=== PATIENT | female | born 2005 | race African-American/Black ===

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

== ENCOUNTER 2024-11-17 13:31 | Emergency (ER) | payer MEDICAID ==
[~2024-11-17] VITALS: Ht 167.6 cm; Wt 66.0 kg
[2024-11-17 13:33] VITALS: O2SAT 100
[2024-11-17 13:39] VITALS: BP 123/91; PULSE 121; RESP 16; TEMP 36.9
[2024-11-17 14:26] LABS: BASOPHILS % 0.9 % (0.0-2.0); EOSINOPHILS % 1.5 % (0.0-5.0); HEMATOCRIT. 32.8 % (36.0-48.0); HEMOGLOBIN. 11.0 g/dL (12.0-16.0); LYMPHOCYTES % 48.2 % (20.0-50.0); MEAN PLATELET VOLUME 7.1 fl (7.4-10.4); MONOCYTES % 3.6 % (2.0-8.0); NEUTROPHILS % 45.8 % (40.0-76.0); PLATELET 504 x1000/uL (130-400); RED BLOOD CELL COUNT 3.84 mill/uL (4.2-5.4); RED CELL DISTRIBUTION WIDTH 12.1 % (11.6-14.6)
[2024-11-17 14:27] LABS: CLARITY URINE CLEAR (CLEAR); COLOR URINE YELLOW (YELLOW); GLUCOSE URINE NEGATIVE (NEGATIVE); KETONES URINE 1+ (NEGATIVE); LEUKOCYTE ESTERASE URINE NEGATIVE (NEGATIVE); NITRITE URINE NEGATIVE (NEGATIVE); OCCULT BLOOD URINE NEGATIVE (NEGATIVE); PH URINE >=9.0 (4.5-8.0); PROTEIN URINE 1+ (NEGATIVE); SPECIFIC GRAVITY URINE 1.014 (1.005-1.030); UROBILINOGEN URINE 0.2 E.U./dL (0.2-1.0)
[2024-11-17 14:37] LABS: CREATININE 0.9 mg/dL (0.6-1.0); UREA NITROGEN BLOOD 6 mg/dL (9-23)
[2024-11-17 14:42] LABS: HCG SCREEN NEGATIVE
[2024-11-17 14:44] LABS: SQUAMOUS EPITHELIAL CELL URINE 2+ /lpf (RARE/1+); WBC URINE 0-2 /hpf (0-2)
[2024-11-17 14:45] LABS: BACTERIA URINE NONE SEEN; RBC URINE NONE SEEN /hpf (0-2)
[2024-11-17 15:00] VITALS: TEMP 98.5
[2024-11-17] MEDS: ONDANSETRON 4MG ODT PO ONE (15:00)
[2024-11-17] MEDS: ACETAMINOPHEN 325MG TABLET PO ONE (15:00)
[2024-11-17] MEDS ORDERED: ONDA-239 PO (16:28)
== END 2024-11-17 17:14 | disposition home or self-care (01) ==
LOC: ER 13:31
DX: K29.70 Gastritis, unspecified, without bleeding (principal); E11.9 Type 2 diabetes mellitus without complications; Z79.899 Other long term (current) drug therapy
CPT/HCPCS: 36415; 74176; 80048; 81003; 81025; 84703; 85025; 99284

== ENCOUNTER 2024-11-23 14:56 | Inpatient (IN) | payer MEDICAID ==
[~2024-11-23] VITALS: Ht 166.4 cm; Wt 61.2 kg
[~2024-11-23 14:56] MED LIST changes: +ONDA-239 PO
[2024-11-23 15:09] VITALS: O2SAT 99
[2024-11-23] MEDS: ONDANSETRON HCL 4MG/2ML INJ IV ONE (15:51)
[2024-11-23] MEDS: MORPHINE SULFATE 4 MG/ML INJ (FOR IV/IM USE) IV ONE (15:52)
[2024-11-23] MEDS: SODIUM CHLORIDE 0.9% 1,000 ML IV ONE ×2 (15:52→19:30)
[2024-11-23 16:01] LABS: BASOPHILS % 1.2 % (0.0-2.0); EOSINOPHILS % 1.5 % (0.0-5.0); HEMATOCRIT. 35.3 % (36.0-48.0); HEMOGLOBIN. 11.8 g/dL (12.0-16.0); LYMPHOCYTES % 47.5 % (20.0-50.0); MEAN PLATELET VOLUME 7.4 fl (7.4-10.4); MONOCYTES % 2.8 % (2.0-8.0); NEUTROPHILS % 47.0 % (40.0-76.0); PLATELET 465 x1000/uL (130-400); RED BLOOD CELL COUNT 4.09 mill/uL (4.2-5.4); RED CELL DISTRIBUTION WIDTH 12.3 % (11.6-14.6)
[2024-11-23 16:11] LABS: CREATININE 1.0 mg/dL (0.6-1.0)
[2024-11-23 16:12] LABS: UREA NITROGEN BLOOD 9 mg/dL (9-23)
[2024-11-23 16:13] LABS: ASPARTATE AMINOTRANSFERASE 9 IU/L (<34); BILIRUBIN DIRECT < 0.1 mg/dL (<=3.0)
[2024-11-23 16:14] LABS: BILIRUBIN TOTAL 0.3 mg/dL (0.1-1.0); PROTEIN TOTAL 7.4 g/dL (6.0-8.3)
[2024-11-23 16:56] LABS: BG DEOXYHEMOGLOBIN 10.0 % (0.0-5.0)
[2024-11-23] MEDS ORDERED: HYDROMORPHONE HCL/PF 2MG/ML INJ IV ONE (18:00)
[2024-11-23 18:01] LABS: CLARITY URINE CLEAR (CLEAR); COLOR URINE YELLOW (YELLOW); GLUCOSE URINE 3+ (NEGATIVE); KETONES URINE 1+ (NEGATIVE); LEUKOCYTE ESTERASE URINE NEGATIVE (NEGATIVE); NITRITE URINE NEGATIVE (NEGATIVE); OCCULT BLOOD URINE NEGATIVE (NEGATIVE); PH URINE 7.0 (4.5-8.0); PROTEIN URINE 2+ (NEGATIVE); SPECIFIC GRAVITY URINE 1.041 (1.005-1.030); UROBILINOGEN URINE 1.0 E.U./dL (0.2-1.0)
[2024-11-23 18:21] LABS: RBC URINE 0-2 /hpf (0-2); SQUAMOUS EPITHELIAL CELL URINE 2+ /lpf (RARE/1+); WBC URINE 0-2 /hpf (0-2)
[2024-11-23 18:22] LABS: BACTERIA URINE TRACE
[2024-11-23] MEDS: HYDROMORPHONE HCL/PF 1MG/ML INJ IV NR (19:30)
[2024-11-24 00:28] VITALS: BP 120/86; PULSE 114; RESP 18; TEMP 36.3068
[2024-11-24] MEDS ORDERED: DEXTROSE 50% WATER 50ML SYRINGE IV PRN ×2 (01:15→12:30)
[2024-11-24] MEDS ORDERED: HYDROCODONE/ACETAMINOPHEN 5/325MG TABLET PO PRN (01:15)
[2024-11-24] MEDS ORDERED: MORPHINE SULFATE 2 MG/ML INJ (NOT FOR IM USE) IV PRN (01:15)
[2024-11-24] MEDS: SODIUM CHLORIDE 0.9% 1,000 ML IV SCH (01:30)
[2024-11-24] MEDS: MORPHINE SULFATE 4 MG/ML INJ (FOR IV/IM USE) IV PRN (02:17)
[2024-11-24 04:00] VITALS: BP 120/86; PULSE 114; RESP 18; TEMP 36.3; O2SAT 98
[2024-11-24] MEDS: BLOOD SUGAR DIAGNOSTIC STRIP TEST SCH (06:49)
[2024-11-24] MEDS: INSULIN GLARGINE 100 UNITS/ML SUBCUT SCH (08:52)
[2024-11-24] MEDS: INSULIN LISPRO 100 UNITS/ML SUBCUT SCH ×2 (08:56→12:50)
[2024-11-24] MEDS ORDERED: ACETAMINOPHEN 325MG TABLET PO PRN (12:30)
[2024-11-24] MEDS ORDERED: NALOXONE HCL 0.4MG/ML VIAL IV PRN (13:00)
[2024-11-24 16:00] VITALS: BP 115/82; PULSE 121; RESP 18; TEMP 36.5; O2SAT 98
[2024-11-24] MEDS ORDERED: BLOOD SUGAR DIAGNOSTIC STRIP TEST SCH (17:20)
[2024-11-24 20:00] VITALS: BP 134/96; PULSE 102; RESP 20; TEMP 36.3; O2SAT 100
[2024-11-25] VITALS (7 sets, daily range): BP systolic 95–123; BP diastolic 65–89; PULSE 67–103; RESP 16–18; TEMP 36.3–36.9; O2SAT 96–100
[2024-11-25 09:20] LABS: BASOPHILS % 0.3 % (0.0-2.0); EOSINOPHILS % 2.8 % (0.0-5.0); HEMATOCRIT. 33.5 % (36.0-48.0); HEMOGLOBIN. 11.1 g/dL (12.0-16.0); LYMPHOCYTES % 60.7 % (20.0-50.0); MEAN PLATELET VOLUME 7.9 fl (7.4-10.4); MONOCYTES % 4.6 % (2.0-8.0); NEUTROPHILS % 31.6 % (40.0-76.0); PLATELET 395 x1000/uL (130-400); RED BLOOD CELL COUNT 3.95 mill/uL (4.2-5.4); RED CELL DISTRIBUTION WIDTH 12.6 % (11.6-14.6)
[2024-11-25 09:43] LABS: CREATININE 0.7 mg/dL (0.6-1.0); UREA NITROGEN BLOOD 8 mg/dL (9-23)
[2024-11-25] MEDS: PANTOPRAZOLE SODIUM 40 MG/VIAL IV SCH (10:45)
[2024-11-25] MEDS ORDERED: DEXTROSE 50% WATER 50ML SYRINGE IV PRN (17:30)
[2024-11-25] MEDS: INSULIN LISPRO 100 UNITS/ML SUBCUT SCH (17:50)
[2024-11-25] MEDS: BLOOD SUGAR DIAGNOSTIC STRIP TEST SCH (18:12)
[2024-11-25] MEDS: ONDANSETRON HCL 4MG/2ML INJ IV PRN (22:02)
[2024-11-26] VITALS: BP 101/72; PULSE 101; RESP 18; TEMP 36.4; O2SAT 95
[2024-11-26 04:00] VITALS: BP 112/83; PULSE 104; RESP 18; TEMP 36.4; O2SAT 98
[2024-11-26 08:00] VITALS: BP 110/71; PULSE 73; RESP 18; TEMP 36.4; O2SAT 96
[2024-11-26] MEDS ORDERED: DEXTROSE 50% WATER 50ML SYRINGE IV PRN (08:45)
[2024-11-26 09:47] VITALS: BP 111/77; PULSE 100; RESP 16; TEMP 97.5
[2024-11-26] MEDS ORDERED: BLOOD SUGAR DIAGNOSTIC STRIP TEST SCH (12:20)
[2024-11-26] MEDS ORDERED: INSULIN LISPRO 100 UNITS/ML SUBCUT SCH (12:50)
== END 2024-11-26 12:08 | disposition home or self-care (01) | DRG 420 ==
LOC: ER 14:56 → 6EST 18:10 → EDBEDREQTM 18:19 → EDBEDREQ 18:19 → EDBEDREQSVC 18:19 → ENRESERV 23:04
PROVIDERS: ADMIT Internal Medicine; ATTEND Internal Medicine
DX: E11.65 Type 2 diabetes mellitus with hyperglycemia (principal); K80.20 Calculus of gallbladder without cholecystitis without obstruction; Z79.4 Long term (current) use of insulin
CPT/HCPCS: 36415; 74176; 76705; 76770; 80048; 80076; 81003; 82010; 82375; 82803; 82962; 83036; 83605; 83735; 83930; 84145; 85025; 93005; 96361; 96374; 96375; 99285; J1171; J1815; J2270; J2405; J2470; J7030